=== PATIENT | male | born 1995 | race Caucasian/White ===

== ENCOUNTER 2018-10-27 11:08 | Emergency (ER) | payer OTHER, SELFPAY ==
--- NOTE | 2018-10-27 13:25 | RAD REPORT ---
EXAM DESCRIPTION: RAD - Chest Pa And Lat (2 Views) - 10/27/2018 1:18 pm CLINICAL HISTORY: CHEST PAIN Chest pain. COMPARISON: No comparisons FINDINGS: The lungs are clear. The heart is normal in size. No displaced fractures. IMPRESSION: No acute or concerning finding suspected.
--- NOTE | 2018-10-27 13:43 | EKG ---
Test Date: 2018-10-27 Test Time: 11:17:15 Engineer Automated Equipment: ACE MEASUREMENT RESULTS: Intervals: Rate: 74 NM: 134 QRSD: 96 QT: 400 QTc: 444 [place]: P: 78 NM: 134 QRS: 89 T: 72 INTERPRETIVE STATEMENTS: Normal sinus rhythm with sinus arrhythmia Normal ECG No previous ECG available for comparison Electronically Signed On 10-27-18 13:42:27 CDT by Devang Nelson
[2018-10-27] MEDS ORDERED: MAGNE/ALUM HYDROXD 30 ML UCUP ONE (13:56)
[2018-10-27] MEDS ORDERED: IBUPROFEN 400 MG TAB ONE (13:56)
[2018-10-27] MEDS ORDERED: LIDOCAINE VISCOUS 2% SOLN 15 ML UDC ONE (13:56)
[2018-10-27 14:13] LABS: Absolute Lymphocytes (CBC) 2.1 K/uL (0.7-4.9); Absolute Monocytes 0.6 K/uL (0.1-1.3); Absolute Neutrophil 2.5 K/uL (1.8-8.0); Basophils % 0.6 % (0-1.3); Eosinophils % 2.9 % (0-4.4); Hematocrit 46.7 % (39.6-49.0); Lymphocytes % 39.5 % (15.3-44.8); MPV 7.5 fL (7.6-11.3); Monocytes % 10.5 % (3.3-12.3); RBC Red Blood Cell Count 5.53 M/uL (4.33-5.43)
[2018-10-27 14:34] LABS: BUN Blood Urea Nitrogen 15 mg/dL (7-18); Bicarbonate 28 mmol/L (21-32); Glucose Level 85 mg/dL (74-106); Potassium 3.6 mmol/L (3.5-5.1); Sodium Level 143 mmol/L (136-145); Troponin (Emerg Dept Use Only) < 0.02 ng/mL (0.0-0.045)
--- NOTE | 2018-10-27 14:50 | EDPHYS ---
Physician Documentation [facility] Name: Dewayne Fuller Age: 22 yrs Sex: Male : 1995 Arrival Date: 10/27/2018 Time: 11:10 Bed 28 Private MD: ED Physician Emeterio Pedro HPI: 10/27 14:44 This 22 yrs old Male presents to ER via Ambulatory with complaints of Chest rn Pain, Arm Pain. 14:44 The patient or guardian reports chest pain that is located primarily in the anterior rn chest wall, left. The pain radiates to the left arm. Associated signs and symptoms: The patient has no apparent associated signs or symptoms, Pertinent negatives: abdominal pain, diaphoresis, headache, near syncope, palpitations, shortness of breath, syncope, vomiting. The chest pain is described as aching, sharp. Duration: The patient or guardian reports multiple episodes, that are intermittent. Modifying factors: The symptoms are alleviated by nothing. the symptoms are aggravated by nothing. 14:47 Severity of pain: At its worst the pain was mild in the emergency department the pain rn is unchanged. The patient has not experienced similar symptoms in the past. Reports 4 days of left sided chest pain, sharp, lasts at most 1 minute, o fever/cough/sob/palpitations, dens stimulants, denies famhx of young cardiac problems, no syncope. No current pain.. Historical: - Allergies: 11:15 No Known Allergies; aa5 - PMHx: 11:15 None; aa5 - PSHx: 11:15 wisdom teeth (12/07/2014); aa5 - Immunization history:: Adult Immunizations up to date. - Social history:: Smoking status: Patient uses tobacco products, denies chronic smoking, but will smoke occasionally. - Ebola Screening: : No symptoms or risks identified at this time. - Family history:: not pertinent. - Hospitalizations: : No recent hospitalization is reported. ROS: 14:47 Constitutional: Negative for fever, chills, and weight loss, Eyes: Negative for injury, rn pain, redness, and discharge, Neck: Negative for injury, pain, and swelling, Cardiovascular: Negative for palpitations, and edema, Respiratory: Negative for shortness of breath, cough, wheezing, and pleuritic chest pain, Abdomen/GI: Negative for abdominal pain, nausea, vomiting, diarrhea, and constipation, MS/Extremity: Negative for injury and deformity, Skin: Negative for injury, rash, and discoloration, Neuro: Negative for headache, weakness, numbness, tingling, and seizure. Exam: 14:47 Constitutional: This is a well developed, well nourished patient who is awake, alert, rn and in no acute distress. Head/Face: Normocephalic, atraumatic. Eyes: Pupils equal round and reactive to light, extra-ocular motions intact. Lids and lashes normal. Conjunctiva and sclera are non-icteric and not injected. Cornea within normal limits. Periorbital areas with no swelling, redness, or edema. Neck: Trachea midline, no thyromegaly or masses palpated, and no cervical lymphadenopathy. Supple, full range of motion without nuchal rigidity, or vertebral point tenderness. No Meningismus. Cardiovascular: Regular rate and rhythm with a normal S1 and S2. No gallops, murmurs, or rubs. No pulse deficits. Respiratory: Lungs have equal breath sounds bilaterally, clear to auscultation. No rales, rhonchi or wheezes noted. No increased work of breathing, no retractions or nasal flaring. Abdomen/GI: Soft, non-tender, with normal bowel sounds. No distension or tympany. No guarding or rebound. No evidence of tenderness throughout. MS/ Extremity: Pulses equal, no cyanosis. Neurovascular intact. Full, normal range of motion. Equal circumference. Neuro: Awake and alert, GCS 15, oriented to person, place, time, and situation. Cranial nerves II-XII grossly intact. Motor strength 5/5 in all extremities. Sensory grossly intact. Cerebellar exam normal. Vital Signs: 11:15 BP 140 / 84; Pulse 71; Resp 16; Temp 97.9(TE); Pulse Ox 100% on R/A; Weight 89.36 kg aa5 (R); Height 6 ft. 0 in. (182.88 cm) (R); Pain 1/10; 14:00 BP 120 / 78; Pulse 80; Resp 18; Pulse Ox 100% on R/A; Pain 0/10; mg2 15:02 BP 112 / 66; Pulse 70; Resp 18; Pulse Ox 100% on R/A; Pain 0/10; mg2 11:15 Body Mass Index 26.72 (89.36 kg, 182.88 cm) aa5 MDM: 13:09 Patient medically screened. rn 14:47 Differential diagnosis: acute pericarditis, anxiety, chest wall pain, costochondritis, rn esophagitis, gastritis, gastroesophageal reflux disease (GERD), pleurisy, pneumothorax. Data reviewed: vital signs, nurses notes, lab test result(s), EKG, radiologic studies, plain films, and as a result, I will discharge patient. Counseling: I had a detailed discussion with the patient and/or guardian regarding: the historical points, exam findings, and any diagnostic results supporting the discharge/admit diagnosis, lab results, radiology results, the need for outpatient follow up, to return to the emergency department if symptoms worsen or persist or if there are any questions or concerns that arise at home. Special discussion: Based on the patient's history, exam, and Dx evaluation, there is no indication for emergent intervention or inpatient Tx. It is understood by the patient/guardian that if the Sx's persist or worsen they need to return immediately for re-evaluation. I discussed with the patient/guardian in detail that at this point there is no indication for admission to the hospital. It is understood, however, that if the symptoms persist or worsen the patient needs to return immediately for re-evaluation. 10/27 13:36 Order name: BMP; Complete Time: 14:40 rn 10/27 13:36 Order name: CBC with Diff; Complete Time: 14:40 rn 10/27 13:10 Order name: XRAY Chest Pa And Lat (2 Views); Complete Time: 13:35 rn 10/27 13:36 Order name: Troponin (emerg Dept Use Only); Complete Time: 14:40 rn 10/27 13:10 Order name: EKG; Complete Time: 13:10 rn 10/27 13:10 Order name: EKG - Nurse/Tech; Complete Time: 13:55 rn 10/27 13:36 Order name: IV Start; Complete Time: 13:54 rn Administered Medications: 13:55 Drug: GI Cocktail without - (Maalox Suspension 30 ml, Lidocaine Liquid 2 % 15 mg2 ml) Route: PO; 14:47 Follow up: Response: No adverse reaction; Marked relief of symptoms mg2 13:55 Drug: Motrin 800 mg Route: PO; mg2 14:47 Follow up: Response: No adverse reaction; Marked relief of symptoms mg2 Disposition: 10/27/18 14:49 Discharged to Home. Impression: Chest pain, unspecified. - Condition is Stable. - Discharge Instructions: Nonspecific Chest Pain, Chest Wall Pain. - Medication Reconciliation Form, Thank You Letter, Antibiotic Education, Prescription Opioid Use, Work release form, Family Work Release form. - Follow up: Private Physician; When: As needed; Reason: Recheck today's complaints, Re-evaluation by your physician. - Problem is an ongoing problem. - Symptoms have improved. Signatures: Dispatcher [employer] EDMS Emeterio Pedro MD MD rn Calderon, Audri RN RN aa5 Trenton Ayala RN RN mg2 Corrections: (The following items were deleted from the chart) 15:05 14:49 10/27/2018 14:49 Discharged to Home. Impression: Chest pain, unspecified. mg2 Condition is Stable. Forms are Medication Reconciliation Form, Thank You Letter, Antibiotic Education, Prescription Opioid Use. Follow up: Private Physician; When: As needed; Reason: Recheck today's complaints, Re-evaluation by your physician. Problem is an ongoing problem. Symptoms have improved. rn
--- NOTE | 2018-10-27 14:50 | ER ---
Nurse's Notes [facility] Name: Dewayne Fuller Age: 22 yrs Sex: Male : 1995 Arrival Date: 10/27/2018 Time: 11:10 Bed 28 Private MD: Diagnosis: Chest pain, unspecified Presentation: 10/27 11:14 Presenting complaint: Patient states: left-sided chest pain radiating to left arm that aa5 began 4 days ago. Pt also reports SOB and nausea, denies vomiting. Transition of care: patient was not received from another setting of care. Onset of symptoms was September 2018. Risk Assessment: Do you want to hurt yourself or someone else? Patient reports no desire to harm self or others. Initial Sepsis Screen: Does the patient meet any 2 criteria? No. Patient's initial sepsis screen is negative. Does the patient have a suspected source of infection? No. Patient's initial sepsis screen is negative. Care prior to arrival: None. 11:14 Method Of Arrival: Ambulatory aa5 11:14 Acuity: CLAUDIO 3 aa5 Historical: - Allergies: 11:15 No Known Allergies; aa5 - PMHx: 11:15 None; aa5 - PSHx: 11:15 wisdom teeth (12/07/2014); aa5 - Immunization history:: Adult Immunizations up to date. - Social history:: Smoking status: Patient uses tobacco products, denies chronic smoking, but will smoke occasionally. - Ebola Screening: : No symptoms or risks identified at this time. - Family history:: not pertinent. - Hospitalizations: : No recent hospitalization is reported. Screenin:17 Abuse screen: Denies threats or abuse. Denies injuries from another. Nutritional mg2 screening: No deficits noted. Fall Risk None identified. 13:18 Tuberculosis screening: No symptoms or risk factors identified. mg2 Assessment: 13:17 Reassessment: patient sent for xray. mg2 13:59 General: Appears in no apparent distress. comfortable, Behavior is calm, cooperative. mg2 Pain: Complains of pain in chest Pain radiates to left arm Pain currently is 4 out of 10 on a pain scale. Quality of pain is described as aching, Pain began 1 day ago. Is intermittent. Neuro: Level of Consciousness is awake, alert, obeys commands, Oriented to person, place, time, situation. Cardiovascular: Capillary refill < 3 seconds Patient's skin is warm and dry. Cardiovascular: Reports chest pain. Respiratory: Airway is patent Respiratory effort is even, unlabored, Respiratory pattern is regular, symmetrical. GI: No signs and/or symptoms were reported involving the gastrointestinal system. : No signs and/or symptoms were reported regarding the genitourinary system. EENT: No signs and/or symptoms were reported regarding the EENT system. Derm: Skin is intact, is healthy with good turgor, Skin is pink, warm \T\ dry. normal. Musculoskeletal: Circulation, motion, and sensation intact. Capillary refill < 3 seconds. 15:00 Reassessment: Patient appears in no apparent distress at this time. Patient and/or mg2 family updated on plan of care and expected duration. Pain level reassessed. Patient is alert, oriented x 3, equal unlabored respirations, skin warm/dry/pink. Patient states feeling better. Vital Signs: 11:15 BP 140 / 84; Pulse 71; Resp 16; Temp 97.9(TE); Pulse Ox 100% on R/A; Weight 89.36 kg aa5 (R); Height 6 ft. 0 in. (182.88 cm) (R); Pain 1/10; 14:00 BP 120 / 78; Pulse 80; Resp 18; Pulse Ox 100% on R/A; Pain 0/10; mg2 15:02 BP 112 / 66; Pulse 70; Resp 18; Pulse Ox 100% on R/A; Pain 0/10; mg2 11:15 Body Mass Index 26.72 (89.36 kg, 182.88 cm) aa5 ED Course: 11:10 Patient arrived in ED. as 11:12 Arm band placed on. aa5 11:14 Triage completed. aa5 11:17 EKG completed in triage. Results shown to MD. aa5 13:09 Emeterio Pedro MD is Attending Physician. rn 13:09 Trenton Ayala RN is Primary Nurse. mg2 13:18 No provider procedures requiring assistance completed. Patient maintains SpO2 mg2 saturation greater than 95% on room air. 13:19 XRAY Chest Pa And Lat (2 Views) In Process Unspecified. EDMS 13:19 Patient has correct armband on for positive identification. Pulse ox on. NIBP on. mg2 14:01 Inserted saline lock: 20 gauge in left antecubital area, using aseptic technique. Blood mg2 collected. Susana< retail property manager. 15:03 IV discontinued, intact, bleeding controlled, No redness/swelling at site. Pressure mg2 dressing applied. Administered Medications: 13:55 Drug: GI Cocktail without - (Maalox Suspension 30 ml, Lidocaine Liquid 2 % 15 mg2 ml) Route: PO; 14:47 Follow up: Response: No adverse reaction; Marked relief of symptoms mg2 13:55 Drug: Motrin 800 mg Route: PO; mg2 14:47 Follow up: Response: No adverse reaction; Marked relief of symptoms mg2 Outcome: 14:49 Discharge ordered by . rn 15:03 Discharged to home ambulatory, with family. mg2 15:03 Condition: stable 15:03 Discharge instructions given to patient, family, Instructed on discharge instructions, follow up and referral plans. Demonstrated understanding of instructions, follow-up care. 15:05 Patient left the ED. mg2 Signatures: Dispatcher [employer] Lori Gross Roman, MD MD rn Calderon, Audri RN RN aa5 Trenton Ayala RN RN mg2 Corrections: (The following items were deleted from the chart) 14:01 13:18 Patient did not have IV access during this emergency room visit. mg2 mg2
== END 2018-10-27 15:05 | disposition home or self-care (01) ==
LOC: ER 11:08
DX: R07.9 Chest pain, unspecified (principal); Z72.0 Tobacco use
CPT/HCPCS: 36415; 71046; 80048; 84484; 85025; 93005

== ENCOUNTER → 2023-08-03 | Emergency (ER) | payer BC ==
[~2023-08-03] MED LIST: KETOROLAC 30 MG/ML INJ ONE
[2023-08-03 23:51] LABS: Hematocrit 44.1 % (39.6-49.0); Lymphocytes % 34.6 % (15.3-44.8); MCV 83.6 fL (80-100); MPV 6.8 fL (7.6-11.3); Platelets 337 thou/uL (152-406); RBC Red Blood Cell Count 5.28 M/uL (4.33-5.43)
[2023-08-04 00:10] LABS: BUN Blood Urea Nitrogen 14 mg/dL (7-18); Bicarbonate 27 mEq/L (21-32); Glomerular Filtration Rate 122 ml/min (=/>90); Glucose Level 97 mg/dL (74-106); NT PRO-BNP 11 pg/mL (<125); Potassium 3.6 mEq/L (3.5-5.1); Sodium Level 139 mEq/L (136-145)
[2023-08-04 00:11] LABS: Troponin High Sensitivity < 3.0 pg/mL (<58.9)
--- NOTE | 2023-08-04 00:37 | ER ---
Nurse's Notes [facility] Name: Dewayne Fuller Age: 27 yrs Sex: Male : 1995 Arrival Date: 08/03/2023 Time: 23:13 Bed 13 Private MD: Diagnosis: Chest pain, unspecified Presentation: 08/03 23:31 Chief complaint: Patient states: Pt c/o left side chest pain that radiates up to left tl4 clavicle with deep inspiration. Pt also states his left eye "twitches" intermittently. Pt denies SOB, fever/chills, cough, injury. Coronavirus screen: At this time, the client does not indicate any symptoms associated with coronavirus-19. Ebola Screen: No symptoms or risks identified at this time. Initial Sepsis Screen: Does the patient meet any 2 criteria? No. Patient's initial sepsis screen is negative. Does the patient have a suspected source of infection? No. Patient's initial sepsis screen is negative. Risk Assessment: Do you want to hurt yourself or someone else? Patient reports no desire to harm self or others. Onset of symptoms was August 01, 2023. 23:31 Method Of Arrival: Ambulatory tl4 23:31 Acuity: CLAUDIO 3 tl4 Triage Assessment: 23:34 General: Appears in no apparent distress. Behavior is calm, cooperative. Pain: tl4 Complains of pain in left chest and left upper abdomen, left clavicle. EENT: No deficits noted. No signs and/or symptoms were reported regarding the EENT system. Neuro: No deficits noted. Cardiovascular: Denies chest pain, diaphoresis, fatigue, lightheadedness, nausea, palpitations. Respiratory: Reports pain with respiration Denies cough, shortness of breath. GI: No deficits noted. No signs and/or symptoms were reported involving the gastrointestinal system. : No deficits noted. No signs and/or symptoms were reported regarding the genitourinary system. Derm: No deficits noted. No signs and/or symptoms reported regarding the dermatologic system. Historical: - Allergies: 23:34 Iodine; tl4 - Home Meds: 23:34 None [Active]; tl4 - PMHx: 23:34 None; tl4 - PSHx: 23:34 None; tl4 - Immunization history:: Adult Immunizations unknown. - Social history:: Smoking status: Patient reports the use of cigarette tobacco products, denies chronic smoking, but will smoke occasionally. - Family history:: not pertinent. - Hospitalizations: : No recent hospitalization is reported. Screenin:55 [facility] ED Fall Risk Assessment (Adult) History of falling in the last 3 months, rv including since admission No falls in past 3 months (0 pts) Score/Fall Risk Level 0 - 2 = Low Risk Oriented to surroundings, Maintained a safe environment, Educated pt \\T\\ family on fall prevention, incl call for assistance when getting out of bed, Assessed \\T\\ reinforced patient's understanding of fall precautions. Abuse screen: Denies threats or abuse. Denies injuries from another. Nutritional screening: No deficits noted. Tuberculosis screening: No symptoms or risk factors identified. Assessment: 23:55 General: Appears comfortable, Behavior is calm, cooperative. Pain: Complains of pain in rv chest. Neuro: Level of Consciousness is awake, alert, obeys commands, Oriented to person, place, time, situation. Cardiovascular: Capillary refill < 3 seconds Patient's skin is warm and dry. Rhythm is regular. Respiratory: Airway is patent Respiratory effort is even, unlabored. GI: No signs and/or symptoms were reported involving the gastrointestinal system. : No signs and/or symptoms were reported regarding the genitourinary system. Derm: Skin is intact. Vital Signs: 23:31 BP 163 / 93; Pulse 76; Resp 18; Temp 98.6(O); Pulse Ox 99% on R/A; Weight 89.8 kg (M); tl4 Height 6 ft. 1 in. ; Pain 8/10; 08/04 00:45 BP 107 / 73; Pulse 78; Resp 17; Temp 98; Pulse Ox 99% on R/A; rv 08/03 23:31 Body Mass Index 26.12 (89.80 kg, 185.42 cm) tl4 02 23:31 Pain Scale: Adult tl4 [place] Coma Score: 00:45 Eye Response: spontaneous(4). Motor Response: obeys commands(6). Verbal Response: rv oriented(5). Total: 15. ED Course: 08/03 23:17 Patient arrived in ED. jb4 23:17 Emeterio Pedro MD is Attending Physician. rn 23:33 Triage completed. tl4 23:35 Arm band placed on Patient placed in an exam room, on a stretcher. tl4 23:38 Lee Saab, RN is Primary Nurse. rv 23:55 Patient has correct armband on for positive identification. Client placed on continuous rv cardiac and pulse oximetry monitoring. NIBP monitoring applied. quality assurance monitor on. 23:55 No provider procedures requiring assistance completed. Inserted saline lock: 20 gauge rv in right antecubital area, using aseptic technique. Blood collected. 08/04 00:00 XRAY Chest (1 view) In Process Unspecified. EDMS 00:45 IV discontinued, intact, bleeding controlled, No redness/swelling at site. Pressure rv dressing applied. Administered Medications: 00:44 Drug: Ketorolac IVP 15 mg IVP once Route: IVP; Site: right antecubital; rv 00:44 Follow up: Response: Medication administered at discharge. rv Medication: 08/03 23:55 VIS not applicable for this client. rv Outcome: 08/04 00:36 Discharge ordered by . rn 00:45 Discharged to home ambulatory, with friend, rv 00:45 Condition: good 00:45 Discharge instructions given to patient, Instructed on discharge instructions, follow up and referral plans. Demonstrated understanding of instructions, follow-up care, 00:46 Patient left the ED. rv Signatures: Dispatcher [employer] EDMS Emeterio Pedro MD MD rn Bryson, James RN RN jb4 Lee Saab, RN RN rv Logdajagdish, Nomi tl4
--- NOTE | 2023-08-04 00:37 | EDPHYS ---
Physician Documentation [facility] Name: Dewayne Fuller Age: 27 yrs Sex: Male : 1995 Arrival Date: 08/03/2023 Time: 23:13 Bed 13 Private MD: ED Physician Emeterio Pedro HPI: 08/03 23:33 This 27 yrs old Male presents to ER via Unassigned with complaints of chest pain. rn 23:33 The patient or guardian reports chest pain that is located primarily in the anterior rn chest wall, left. The pain does not radiate. Associated signs and symptoms: Pertinent negatives: abdominal pain, cough, diaphoresis, dizziness, headache, lower extremity pain, lower extremity swelling, lightheadedness, nausea, near syncope, palpitations, shortness of breath, syncope, vomiting. The chest pain is described as sharp, stabbing. Duration: The patient or guardian reports multiple episodes, that are intermittent. Modifying factors: The symptoms are alleviated by nothing. the symptoms are aggravated by deep breath. Severity of pain: At its worst the pain was moderate in the emergency department the pain is unchanged. The patient has not experienced similar symptoms in the past. Patient reports left-sided anterior chest pain, worse with deep breaths. No recent infection. No fever. No trauma. Does hurt to touch chest. 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 Also smokes/vapes. No abdominal pain. No hemoptysis. Historical: - Allergies: 23:34 Iodine; tl4 - Home Meds: 23:34 None [Active]; tl4 - PMHx: 23:34 None; tl4 - PSHx: 23:34 None; tl4 - Immunization history:: Adult Immunizations unknown. - Social history:: Smoking status: Patient reports the use of cigarette tobacco products, denies chronic smoking, but will smoke occasionally. - Family history:: not pertinent. - Hospitalizations: : No recent hospitalization is reported. ROS: 23:33 Constitutional: Negative for fever, chills, and weight loss, Neck: Negative for injury, rn pain, and swelling, Cardiovascular: Positive for left-sided chest pain Respiratory: Negative for shortness of breath, cough, wheezing Abdomen/GI: Negative for abdominal pain, nausea, vomiting, diarrhea, and constipation, Back: Negative for injury and pain, MS/Extremity: Negative for injury and deformity, Skin: Negative for injury, rash, and discoloration, Neuro: Negative for headache, weakness, numbness, tingling, and seizure, Exam: 23:33 Constitutional: This is a well developed, well nourished patient who is awake, alert, rn and in no acute distress. Head/Face: Normocephalic, atraumatic. Cardiovascular: Regular rate and rhythm. No pulse deficits. Respiratory: No increased work of breathing, no retractions or nasal flaring. Abdomen/GI: Soft, nontender, no guarding 08/04 00:40 ECG was reviewed by the Attending Physician. rn Vital Signs: 08/03 23:31 BP 163 / 93; Pulse 76; Resp 18; Temp 98.6(O); Pulse Ox 99% on R/A; Weight 89.8 kg (M); tl4 Height 6 ft. 1 in. ; Pain 8/10; 08/04 00:45 BP 107 / 73; Pulse 78; Resp 17; Temp 98; Pulse Ox 99% on R/A; rv 08/03 23:31 Body Mass Index 26.12 (89.80 kg, 185.42 cm) tl4 08/03 23:31 Pain Scale: Adult tl4 Rowe Coma Score: 00:45 Eye Response: spontaneous(4). Motor Response: obeys commands(6). Verbal Response: rv oriented(5). Total: 15. MDM: 08/03 23:17 Patient medically screened. rn 08/04 00:35 Differential diagnosis: acute pericarditis, chest wall pain, costochondritis, pleurisy, rn pneumonia, pneumothorax, pulmonary embolus. Data reviewed: vital signs, nurses notes, lab test result(s), EKG, radiologic studies, plain films, and as a result, I will discharge patient. Counseling: I had a detailed discussion with the patient and/or guardian regarding the historical points, exam findings, and any diagnostic results supporting the discharge/admit diagnosis, lab results, radiology results, the need for outpatient follow up, to return to the emergency department if symptoms worsen or persist or if there are any questions or concerns that arise at home. 00:36 Counseling: I had a detailed discussion with the patient and/or guardian regarding rn smoking cessation. Special discussion: Based on the patient's history, exam, and Dx evaluation, there is no indication for emergent intervention or inpatient Tx. It is understood by the patient/guardian that if the Sx's persist or worsen they need to return immediately for re-evaluation. I discussed with the patient/guardian in detail that at this point there is no indication for admission to the hospital. It is understood, however, that if the symptoms persist or worsen the patient needs to return immediately for re-evaluation. 08/03 23:26 Order name: Basic Metabolic Panel; Complete Time: 00:11 rn 08/03 23:26 Order name: CBC with Diff; Complete Time: 00: rn 08/03 23:26 Order name: D-Dimer; Complete Time: 00: rn 08/03 23:26 Order name: NT PRO-BNP; Complete Time: 00: rn 08/03 23:26 Order name: Troponin HS; Complete Time: 00: rn 08/03 23:26 Order name: XRAY Chest (1 view) rn 08/03 23:26 Order name: EKG; Complete Time: 23: rn 08/03 23:26 Order name: Cardiac monitoring; Complete Time: 23:54 rn 08/03 23:26 Order name: EKG - Nurse/Tech; Complete Time: 23:54 rn 08/03 23:26 Order name: IV Saline Lock; Complete Time: 23:54 rn 08/03 23:26 Order name: Labs collected and sent; Complete Time: 23:54 rn 08/03 23:26 Order name: O2 Per Protocol; Complete Time: 23:55 rn 08/03 23:26 Order name: O2 Sat Monitoring; Complete Time: 23:55 rn EC:40 Rate is 74 beats/min. Rhythm is regular. QRS [place] is Normal. SD interval is normal. QRS rn interval is normal. QT interval is normal. No Q waves. T waves are Normal. No ST changes noted. Clinical impression: Normal ECG. Interpreted by me. Reviewed by me. Administered Medications: 00:44 Drug: Ketorolac IVP 15 mg IVP once Route: IVP; Site: right antecubital; rv 00:44 Follow up: Response: Medication administered at discharge. rv Disposition Summary: 08/04/23 00:36 Discharge Ordered Notes: Location: Home rn Problem: new rn Symptoms: have improved rn Condition: Stable rn Diagnosis - Chest pain, unspecified rn Followup: rn - With: Private Physician - When: As needed - Reason: Recheck today's complaints, Re-evaluation by your physician Discharge Instructions: - Discharge Summary Sheet rn - Nonspecific Chest Pain, Adult rn Forms: - Medication Reconciliation Form rn - Thank You Letter rn - Antibiotic heater furnace - Prescription Opioid Use rn - Patient Portal Instructions rn - Leadership Thank You Letter rn Signatures: Dispatcher [employer] Emeterio Echeverria MD MD rn Vicente, Ronaldo, RN RN rv Logdahl, Toni tl4
[2023-08-04 03:38] VITALS: BP 107/73; TEMP 98; O2SAT 99
--- NOTE | 2023-08-05 11:50 | RAD REPORT ---
EXAM DESCRIPTION: RAD - Chest Single View - 08/03/2023 11:58 pm CLINICAL HISTORY: 27 years Male CHEST PAIN COMPARISON: None TECHNIQUE: AP view of the chest was obtained. FINDINGS: Cardiac size is within normal limits. Central vessels are not increased. No infiltrates or effusions seen. No consolidation. No pneumothorax. IMPRESSION: No active disease. Electronically signed by: Christianne Schaffer MD 08/04/2023 12:12 AM SUPERVISING DEPUTY Due to temporary technical issues with the PACS/Fluency reporting system, reports are being signed by the in house radiologist without review as a courtesy to ensure prompt reporting. The interpreting r adiologist is fully responsible for the content of the report.
--- NOTE | 2023-08-05 15:02 | EKG ---
Test Date: 2023-08-03 Test Time: 23:51:18 Marriage And Family Counselor: RV MEASUREMENT RESULTS: Intervals: Rate: 74 OK: 150 QRSD: 94 QT: 402 QTc: 446 [place]: P: 64 OK: 150 QRS: 71 T: 53 INTERPRETIVE STATEMENTS: Normal sinus rhythm with sinus arrhythmia Normal ECG Compared to ECG 10/27/2018 11:17:15 No significant changes Electronically Signed On 08-05-23 14:58:47 PHOTOGRAPHIC EQUIPMENT ASSEMBLER by Bishop Martínez
== END ==
LOC: ER 23:13
DX: R07.89 Other chest pain (principal); F17.210 Nicotine dependence, cigarettes, uncomplicated; Z91.048 Other nonmedicinal substance allergy status
CPT/HCPCS: 36415; 71045; 80048; 83880; 84484; 85025; 85379; 93005